=== PATIENT | female | born 1930 | race Caucasian/White ===

== ENCOUNTER → 2017-10-30 | Outpatient (CLI) | payer MEDICARE ==
[~2017-10-30] VITALS: Ht 157.5 cm; Wt 57.2 kg
[~2017-10-30] MED LIST: ASPIR 8181 M1 PO; ASPIR-TRIN325 MG PO; ATENOLOL; BENADRYL25 MG PO; CLARITIN10 MG PO; DIOVAN; DIOVAN320 MG PO; DOXYCYCLINE 10100 MG PO; LOVASTATIN; LOVASTATIN 20 M20 MG PO; NORVASC5 MG PO; TUMS PO; VITAMIN D1000 UNI1 PO
[2017-10-30 10:47] VITALS: BP 164/79
[2017-10-30 10:54] LABS: ABSOLUTE EOSINOPHILS 0.4 thou/uL (0.0-0.7); ABSOLUTE LYMPHOCYTES 1.7 thou/uL (0.8-5.3); ABSOLUTE MONOCYTES 0.7 thou/uL (0.0-1.2); BASOPHILS 0.3 %; EOSINOPHILS 4.7 %; HEMOGLOBIN 15.2 gm/dL (12.0-15.0); LYMPHOCYTES 19.5 %; MCH 28.8 pg (26.0-34.0); MCHC 33.1 g/dL (28.0-37.0); MONOCYTES 7.9 %; NUCLEATED RBCS 0 /100WBC; PLATELET COUNT* 339 thou/uL (150-400); POLYS 67.6 %; RBC 5.28 mil/uL (4.20-5.00); RDW-CV 15.4 % (10.5-14.5); WBC 8.9 thou/uL (4.0-11.0)
[2017-10-30 10:56] LABS: CALCIUM 9.4 mg/dL (8.5-10.1); CREATININE 1.2 mg/dL (0.6-1.3); POTASSIUM 4.1 mmol/L (3.5-5.1)
[2017-10-30 10:59] LABS: APTT 26.1 Seconds (25.0-31.3); INR 1.1; PROTIME 10.3 Seconds (9.20-11.50)
[2017-10-30 14:00] VITALS: BP 150/70
[2017-10-30 14:15] VITALS: BP 155/72
[2017-10-30 14:30] VITALS: BP 160/71
[2017-10-30 14:45] VITALS: BP 170/90
[2017-10-30 15:10] VITALS: BP 180/78
--- NOTE | 2017-10-30 15:28 | EKG ---
[place] [address] ELECTROCARDIOGRAM REPORT Name: FREDO POLO Room: [facility]#: [id number] Admission: 10/30/17 Attend Phys: Tre Baumann MD Discharge: Date of : 34 Report #: [id number] THIS REPORT FOR: //name// [facility] Test Date: 2017-10-30 Test Time: 11:11:23 Pat Name: FREDO ACEVEDOLEEANNA Department: Room: Gender: F Ballroom Dance Instructor: : 1930 Requested By: Tre Baumann Order Number: [id number] Reading MD: Tre Baumann Measurements Intervals [place] Rate: 65 P: 0 OK: 83 QRS: 256 QRSD: 170 T: 176 QT: 698 QTc: 727 Interpretive Statements Ventricular-paced rhythm No further analysis attempted due to paced rhythm Compared to ECG 04/25/2015 19:48:40 Sinus rhythm no longer present T-wave abnormality no longer present Electronically Signed On 10-30-2017 15:27:56 CDT by Tre Baumann [email or web address] <ELECTRONICALLY SIGNED> By: Tre Baumann MD, FACC 10/30/17 1527 1111 1111 Tre Baumann MD, [facility] /EPI
--- NOTE | 2017-11-09 08:10 | CARD ---
[address] [address] CARDIAC CATH REPORT Name: KRISTINAFREDO DURÁN Room: [facility] Jd#: [id number] Admission: 10/30/17 Attend Phys: Tre Baumann MD Discharge: Date of : 34 Report #: [id number] THIS REPORT FOR: //name// CC: Tye Baumann DATE OF SERVICE: 10/30/2017 The patient was brought to the cardiac catheterization lab for dual chamber pulse generator replacement as her device was at elective replacement. Informed consent was obtained. The chest wall was prepped and draped in sterile fashion. An initial incision was made at which time it was discovered we did not have the proper equipment to complete the procedure. The skin incision that had been made was closed with a single subcuticular stitch of 4-0 Vicryl suture and covered with a sterile dressing. There were no complications. The patient was rescheduled for the procedure at a later date when the proper equipment is available. <ELECTRONICALLY SIGNED> By: Tre Baumann MD, FACC 11/09/17 0810 1741 2008[facility] Baumann MD, FACC /nt
== END | disposition home or self-care (01) ==
LOC: M.CL 10:01
PROVIDERS: Internal Medicine Cardiovascular Disease
DX: Z45.010 Encounter for checking and testing of cardiac pacemaker pulse generator [battery] (principal); I10 Essential (primary) hypertension; M19.90 Unspecified osteoarthritis, unspecified site; Z90.710 Acquired absence of both cervix and uterus; Z90.49 Acquired absence of other specified parts of digestive tract; Z88.0 Allergy status to penicillin; Z79.82 Long term (current) use of aspirin; Z79.899 Other long term (current) drug therapy; Z79.01 Long term (current) use of anticoagulants

== ENCOUNTER → 2017-11-02 | Outpatient (CLI) | payer MEDICARE ==
[~2017-11-02] VITALS: Ht 154.9 cm; Wt 57.2 kg
[2017-11-02 11:03] VITALS: BP 181/82
[2017-11-02 13:03] VITALS: BP 176/65
[2017-11-02 13:21] VITALS: BP 176/65
[2017-11-02 13:41] VITALS: BP 188/80
[2017-11-02 14:00] VITALS: BP 186/79
[2017-11-02 14:15] VITALS: BP 184/76
--- NOTE | 2017-11-08 17:37 | CARD ---
[address] [address] CARDIAC CATH REPORT Name: FREDO POLO Room: [facility] Jd#: [id number] Admission: 11/02/17 Attend Phys: Oh Arboleda MD, Discharge: Date of : 34 Report #: [id number] THIS REPORT FOR: //name// APPROVED REPORT Study performed: 11/02/2017 11:40:24 Patient Status: OP Room #: Exam: Generator Change for a Dual Chamber Permanent Pacemaker Indications: pacing generator at elective replacement. Conscious Sedation Start time: 1216 End Time: 1249 Fentanyl 25.0 mcg Versed 1.0 mg Implanted Devices: Biotronik Etrinsa 8 DR T model #006503, serial #[id number] Biotronik M/IS-10 adapteradapter, model #497566, serial # [id number] Explanted Devices: Medtronic [id number] Adapta, serial number [id number] Procedure The patient underwent informed consent. We discussed the details of the procedure including the risks, which include, but not limited to bleeding, infection, vascular damage, cardiac perforation, and pneumothorax. After informed consent was obtained the patient was brought to the cardiac catheterization lab. The area of the right chest was prepped and draped in sterile fashion. Local anesthesia was achieved with 1% lidocaine. Next the existing pulse generator was explanted after an initial incision using electrocautery and blunt dissection. The atrial and ventricular leads were then checked with an external interrogator. Thresholds and sensing were deemed to be satisfactory. An adapter was placed on the ventricular lead to match the new pulse generator header. The atrial and ventricular leads were then attached to the new pulse generator. The pulse generator and redundant lead were then placed within the device pocket. The deep tissues were closed using interrupted stitches of 2-0 Vicryl. The skin incision was then closed with a single subcuticular stitch of 4-0 Vicryl. The patient tolerated procedure well without, [place] [address] CARDIAC CATH REPORT Name: FREDO POLO Room: [facility]#: [id number] Admission: 11/02/17 Attend Phys: Oh Arboleda MD, Discharge: Date of : 34 Report #: [id number] P Wave: 6.9 mV R Wave: 8.3 mV Atrial Threshold: 1.2 V at 0.40 ms Ventricular Threshold: 1.2 V at 0.40 ms Atrial Resistance: 370 ohms Ventricular Resistance: 273 ohms Generator Change A new lead was inserted/positioned into the ventricle. The lead was attached to the appropriate receptacle on the new pulse generator and setscrews firmly tightened to insure adequate contact and stability. Complications The patient tolerated the procedure well and there were no complications associated with the procedure. Findings Specimens Removed: N/A Conclusion 1. Dual-chamber pacing generator at elective replacement. 2. Successful replacement of a dual-chamber pacing generator as outlined above. Recommendations 1. Follow-up site check in one week. <ELECTRONICALLY SIGNED> By: Tre Baumann MD, [facility] 11/08/17 1737 1737 1737Micana luisa Baumann MD, FAC /INF
== END | disposition home or self-care (01) ==
LOC: M.CL 10:00
DX: Z45.010 Encounter for checking and testing of cardiac pacemaker pulse generator [battery] (principal); I10 Essential (primary) hypertension; M19.90 Unspecified osteoarthritis, unspecified site; Z90.49 Acquired absence of other specified parts of digestive tract; Z90.710 Acquired absence of both cervix and uterus; Z98.890 Other specified postprocedural states; Z79.899 Other long term (current) drug therapy; Z88.0 Allergy status to penicillin; Z79.82 Long term (current) use of aspirin